=== PATIENT | female | born 1945 | race Caucasian/White ===

== ENCOUNTER 2018-11-30 10:48 | Day surgery (SDC) | payer MEDICARE, OTHER ==
[~2018-11-30 10:48] MED LIST: Lactated Ringers 1,000 ML IV SCH; Lidocaine 1%/Sod Bicarbonate in NS 8.4% 1 ML Syringe IDERM PRN; Sodium Chloride 0.9% 10 ML Syringe FLUSH PRN
[2018-11-30] MEDS ORDERED: Tetracaine HCl/PF 0.5% 4 ML Bottle EYEBOTH ONE (10:50)
[2018-11-30] MEDS: Dexamethasone/Tobramycin 0.1-0.3% Ophth Susp 5 ML Bottle EYEBOTH SCH ×4 (10:58→11:25)
--- NOTE | 2018-11-30 11:07 | PCM.PREANE ---
Preanesthetic Assessment - Procedure Proposed Procedure: dilute- probe-irrigation of nalsal lacrimal system bilateral eyes - Anesthesia/Transfusion/Family Hx Anesthesia History: Prior Anesthesia Without Reaction Family History of Anesthesia Reaction: No Transfusion History: No Prior Transfusion(s) - Review of Systems General: No Symptoms Pulmonary: No Symptoms Cardiovascular: No Symptoms Gastrointestinal: No Symptoms Neurological: No Symptoms Other: Reports: Thyroid Problems - Physical Assessment NPO Status Date: 11/29/18 NPO Status Time: 21:00 (sip of water with am pill) Pulse: 85 O2 Sat by Pulse Oximetry: 95 Respiratory Rate: 16 Blood Pressure: 134/78 Temperature: 97.8 F Height: 5 ft 3 in Weight: 78.018 kg ASA Class: 2 Mental Status: Alert & Oriented x3 Airway Class: Mallampati = 1 Dentition: Reports: Normal Dentition Thyro-Mental Finger Breadths: 3 Mouth Opening Finger Breadths: 3 ROM/Head Extension: Full Lungs: Clear to Auscultation, Normal Respiratory Effort Cardiovascular: Regular Rate, Regular Rhythm - Allergies Allergies/Adverse Reactions: Allergies Allergy/AdvReac Type Severity Reaction Status Date / Time No Known Allergies Allergy Verified 11/29/18 14:31 - Acknowledgements Anesthesia Type Planned: MAC Pt an Appropriate Candidate for the Planned Anesthesia: Yes Alternatives and Risks of Anesthesia Discussed w Pt/Guardian: Yes Pt/Guardian Understands and Agrees with Anesthesia Plan: Yes PreAnesthesia Questionnaire Other HEENT History: wears glasses Cardiovascular History: Reports: High Cholesterol Gastrointestinal History: Reports: Diverticulosis, Hemorrhoids Other Gastrointestinal History: colon polyps, appendix mass, L inguinal hernia repair Genitourinary History: Reports: Renal Calculus, UTI, Recurrent Other Genitourinary History: hematuria Other OB/BYN History: fibrocystic breast disease Other Musculoskeletal History: DJD, bone spur to R 2nd toe, fracture to R and L leg Endocrine/Metabolic History: Reports: Hypothyroidism, Obesity/BMI 30+ Other Hematologic History: rheumatic fever - Past Surgical History GI Surgical History: Reports: Appendectomy, Colonoscopy, Hernia, Inguinal Other Female Surgeries/Procedures: cystoscopy Dermatological Surgical History: Reports: Other (See Below) (cuts on feet thigh sewed up) - SUBSTANCE USE Smoking Status *Q: Never Smoker Tobacco Use Within Last Twelve Months: No Second Hand Smoke Exposure: Yes Recreational Drug Use History: No - HOME MEDS Home Medications: Home Meds Calcium Polycarbophil [Fiber Tabs] 2 tab PO DAILY 01/23/14 [History] Fish Oil/DHA/EPA [Fish Oil 1,200 MG] 1 each PO BID 01/23/14 [History] Levothyroxine 75 mcg PO SUTUTHSA 01/23/14 [History] Levothyroxine [Synthroid] 50 mcg PO MOWEFR 01/23/14 [History] Rosuvastatin Calcium [Crestor] 10 mg PO DAILY 01/23/14 [History] Calcium Carb/Mag Oxide/Cu/Zinc [Melfmpq-Xczrbcsvb-Xhni Tab] 1 tab PO BID [History] Acetaminophen [Tylenol] 650 mg PO Q4H PRN #0 tablet 09/21/15 [Rx] Ibuprofen [Motrin] 400 mg PO Q6H PRN #0 tablet 09/21/15 [Rx] oxyCODONE 5 - 10 mg PO Q4H PRN #50 tablet 09/21/15 [Rx] - CURRENT (IN HOUSE) MEDS Current Meds: Current Medications Lactated Ringer's (Ringers, Lactated) 1,000 mls @ 125 mls/hr IV ASDIRECTED PARI Stop: 11/30/18 23:00 Lidocaine/Sodium Bicarbonate (Buffered Lidocaine 1% In Ns 8.4%) 0.25 ml IDERM ONETIME PRN PRN Reason: Prior to IV Start Stop: 11/30/18 16:00 Sodium Chloride (Saline Flush) 10 ml FLUSH ASDIRECTED PRN PRN Reason: Keep Vein Open Stop: 11/30/18 18:00 Tobramycin/Dexamethasone (Tobradex Ophth Susp) 0 ml EYEBOTH ASDIRECTED PARI Stop: 11/30/18 18:00 Discontinued Medications Tetracaine HCl (Tetracaine 0.5% Steri-Unit Marisa) 0 ml EYEBOTH ASDIRECTED ONE Stop: 11/30/18 10:51
--- NOTE | 2018-11-30 11:48 | PCM48HPAN ---
Post Anesthesia Note - EVALUATION WITHIN 48HRS OF ANESTHETIC Vital Signs in Normal Range: Yes Patient Participated in Evaluation: Yes Respiratory Function Stable: Yes Airway Patent: Yes Cardiovascular Function Stable: Yes Hydration Status Stable: Yes Pain Control Satisfactory: Yes Nausea and Vomiting Control Satisfactory: Yes Mental Status Recovered: Yes Pulse Rate: 87 SaO2: 95 Resp Rate: 16 Temperature: 36.6 C Blood Pressure: 115/73 Pulse Rate: 87
[2018-11-30 12:59] VITALS: BP 121/59
== END 2018-11-30 12:45 | disposition home or self-care (01) ==
LOC: JD.SDS 10:48
PROVIDERS: ATTEND Ophthalmology
DX: H04.563 Stenosis of bilateral lacrimal punctum (principal); H04.202 Unspecified epiphora, left side; H25.813 Combined forms of age-related cataract, bilateral; H02.834 Dermatochalasis of left upper eyelid; H02.831 Dermatochalasis of right upper eyelid; E78.00 Pure hypercholesterolemia, unspecified; Z79.890 Hormone replacement therapy; E66.9 Obesity, unspecified; Z79.899 Other long term (current) drug therapy
CPT/HCPCS: 68801; 68815; A9270; J7120

== ENCOUNTER 2018-12-02 09:09 | Day surgery (SDC) | payer MEDICARE, OTHER ==
[~2018-12-02 09:09] MED LIST changes: +Cefuroxime 10 MG/ML SYRINGE EYERT SCH; -Lactated Ringers 1,000 ML IV SCH; +Lidocaine 1% 2 ML ONE; +Lidocaine 1% PF 2 ML SDV INJECT SCH; -Lidocaine 1%/Sod Bicarbonate in NS 8.4% 1 ML Syringe IDERM PRN; +Propofol 200 MG/20 ML SDV ONE; -Sodium Chloride 0.9% 10 ML Syringe FLUSH PRN
[2018-12-02] MEDS: Polymyxin B/Trimethoprim 10 ML Bottle EYERT SCH ×4 (09:32→11:14)
[2018-12-02] MEDS: Brimonidine 0.2% Ophth Soln 5 ML Bottle EYERT SCH ×4 (09:37→11:14)
[2018-12-02] MEDS: Phenylephrine 2.5% Ophth Soln 2 ML Bot EYERT SCH ×5 (09:43→10:58)
[2018-12-02] MEDS: Tropicamide 1% Ophth Soln 15 ML Bottle EYERT SCH ×4 (09:48→10:33)
--- NOTE | 2018-12-02 09:55 | PCM.PREANE ---
Preanesthetic Assessment - Anesthesia/Transfusion/Family Hx Anesthesia History: Prior Anesthesia Without Reaction Family History of Anesthesia Reaction: No Transfusion History: No Prior Transfusion(s) - Review of Systems General: No Symptoms Pulmonary: No Symptoms Cardiovascular: No Symptoms Gastrointestinal: No Symptoms Neurological: No Symptoms Other: Reports: None - Physical Assessment NPO Status Date: 12/01/18 NPO Status Time: 18:15 Pulse: 75 O2 Sat by Pulse Oximetry: 97 Respiratory Rate: 16 Blood Pressure: 136/68 Vital Signs: Last Vital Signs Temp 36.3 C 12/02/18 09:31 Pulse 75 12/02/18 09:31 Resp 16 12/02/18 09:31 BP 136/68 12/02/18 09:31 Pulse Ox 97 12/02/18 09:31 Height: 1.63 m Weight: 78.018 kg ASA Class: 2 Mental Status: Alert & Oriented x3 Airway Class: Mallampati = 2 Dentition: Reports: Normal Dentition Thyro-Mental Finger Breadths: 3 Mouth Opening Finger Breadths: 3 ROM/Head Extension: Full Lungs: Clear to Auscultation, Normal Respiratory Effort Cardiovascular: Regular Rate, Regular Rhythm - Allergies Allergies/Adverse Reactions: Allergies Allergy/AdvReac Type Severity Reaction Status Date / Time No Known Allergies Allergy Verified 12/01/18 11:11 - Acknowledgements Anesthesia Type Planned: MAC Pt an Appropriate Candidate for the Planned Anesthesia: Yes Alternatives and Risks of Anesthesia Discussed w Pt/Guardian: Yes Pt/Guardian Understands and Agrees with Anesthesia Plan: Yes PreAnesthesia Questionnaire Other HEENT History: wears glasses Cardiovascular History: Reports: High Cholesterol Respiratory History: Reports: None Gastrointestinal History: Reports: Diverticulosis, Hemorrhoids Other Gastrointestinal History: colon polyps, appendix mass, L inguinal hernia repair Genitourinary History: Reports: Renal Calculus, UTI, Recurrent Other Genitourinary History: hematuria Other OB/BYN History: fibrocystic breast disease Musculoskeletal History: Reports: Arthritis Other Musculoskeletal History: DJD, bone spur to R 2nd toe, fracture to R and L leg Neurological History: Reports: None Psychiatric History: Reports: None Endocrine/Metabolic History: Reports: Hypothyroidism, Obesity/BMI 30+ Other Hematologic History: rheumatic fever - Past Surgical History GI Surgical History: Reports: Appendectomy, Colonoscopy, Hernia, Inguinal Other Female Surgeries/Procedures: cystoscopy Dermatological Surgical History: Reports: Other (See Below) (cuts on feet thigh sewed up) - SUBSTANCE USE Smoking Status *Q: Never Smoker - HOME MEDS Home Medications: Home Meds Levothyroxine [Synthroid] 50 mcg PO DAILY 12/01/18 [History] Rosuvastatin [Crestor] 10 mg PO DAILY 12/01/18 [History] - CURRENT (IN HOUSE) MEDS Current Meds: Current Medications Brimonidine Tartrate (Alphagan 0.2% Ophth Soln) 0 ml EYERT TID PARI Stop: 12/02/18 18:00 Last Admin: 12/02/18 09:37 Dose: 1 drop Cefuroxime Sodium (Zinacef) 0 mg EYERT ASDIRECTED PARI Stop: 12/02/18 18:00 Lidocaine HCl (Xylocaine-Mpf 1%) 0 ml INJECT ASDIRECTED PARI Stop: 12/02/18 18:00 Phenylephrine HCl (Timbo-Synephrine 2.5% Ophth Soln) 0 ml EYERT ASDIRECTED PARI Stop: 12/02/18 18:00 Last Admin: 12/02/18 09:43 Dose: 1 drop Pilocarpine HCl (Pilocar 4% Ophth Soln) 0 ml EYERT ASDIRECTED PARI Stop: 12/02/18 18:00 Polymyxin/Trimethoprim Sulfate (Polytrim Ophth Soln) 0 ml EYERT ASDIRECTED PARI Stop: 12/02/18 18:00 Last Admin: 12/02/18 09:32 Dose: 1 drop Tetracaine HCl (Tetracaine 0.5% Steri-Unit Marisa) 0 ml EYERT ASDIRECTED PARI Stop: 12/02/18 18:00 Tropicamide (Mydriacyl 1% Ophth Soln) 0 ml EYERT ASDIRECTED PARI Stop: 12/02/18 18:00 Discontinued Medications Lidocaine HCl (Xylocaine-Mpf 1%) Confirm Administered Dose 2 mls @ as directed .ROUTE .STK-MED ONE Stop: 11/30/18 10:37 Lidocaine HCl (Xylocaine-Mpf 1%) Confirm Administered Dose 2 mls @ as directed .ROUTE .STK-MED ONE Stop: 11/30/18 10:37 Propofol (Diprivan 20 Ml) Confirm Administered Dose 200 mg .ROUTE .STK-MED ONE Stop: 11/30/18 10:37
[2018-12-02] MEDS: Pilocarpine 4% Ophth Soln 15 ML Bot EYERT SCH ×2 (10:14→11:14)
[2018-12-02] MEDS: Tetracaine HCl/PF 0.5% 4 ML Bottle EYERT SCH ×2 (10:40→11:02)
--- NOTE | 2018-12-02 11:16 | PCM48HPAN ---
Post Anesthesia Note - EVALUATION WITHIN 48HRS OF ANESTHETIC Vital Signs in Normal Range: Yes Patient Participated in Evaluation: Yes Respiratory Function Stable: Yes Airway Patent: Yes Cardiovascular Function Stable: Yes Hydration Status Stable: Yes Pain Control Satisfactory: Yes Nausea and Vomiting Control Satisfactory: Yes Mental Status Recovered: Yes Pulse Rate: 80 SaO2: 97 Resp Rate: 16 Blood Pressure: 145/72
[2018-12-02 11:35] VITALS: BP 133/59
== END 2018-12-02 11:28 | disposition home or self-care (01) ==
LOC: JD.SDS 09:09
PROVIDERS: ATTEND Ophthalmology
DX: H25.813 Combined forms of age-related cataract, bilateral (principal); E66.9 Obesity, unspecified; H04.213 Epiphora due to excess lacrimation, bilateral lacrimal glands; H02.831 Dermatochalasis of right upper eyelid; H04.523 Eversion of bilateral lacrimal punctum; H02.834 Dermatochalasis of left upper eyelid; E03.9 Hypothyroidism, unspecified; E78.00 Pure hypercholesterolemia, unspecified; Z79.890 Hormone replacement therapy
CPT/HCPCS: 66984; A9270; C1780; J0697; J2001; J2704

== ENCOUNTER 2018-12-30 06:53 | Day surgery (SDC) | payer MEDICARE, OTHER ==
[~2018-12-30 06:53] MED LIST changes: +Cefuroxime 10 MG/ML SYRINGE EYELF SCH; -Cefuroxime 10 MG/ML SYRINGE EYERT SCH; -Lidocaine 1% 2 ML ONE; +Pilocarpine 4% Ophth Soln 15 ML Bot EYELF SCH; -Propofol 200 MG/20 ML SDV ONE
[2018-12-30] MEDS: Polymyxin B/Trimethoprim 10 ML Bottle EYELF SCH ×3 (07:12→08:46)
[2018-12-30] MEDS: Brimonidine 0.2% Ophth Soln 5 ML Bottle EYELF SCH ×3 (07:15→08:46)
[2018-12-30] MEDS: Phenylephrine 2.5% Ophth Soln 2 ML Bot EYELF SCH ×5 (07:18→08:32)
--- NOTE | 2018-12-30 07:18 | PCM.PREANE ---
Preanesthetic Assessment - Anesthesia/Transfusion/Family Hx Anesthesia History: Prior Anesthesia Without Reaction Family History of Anesthesia Reaction: No Transfusion History: No Prior Transfusion(s) - Review of Systems General: Other (increased cholesterol) Pulmonary: No Symptoms Cardiovascular: No Symptoms Other: Reports: Thyroid Problems - Physical Assessment NPO Status Date: 12/29/18 NPO Status Time: 18:30 Pulse: 76 O2 Sat by Pulse Oximetry: 96 Respiratory Rate: 16 Blood Pressure: 150/97 Weight: 78.018 kg ASA Class: 2 Mental Status: Alert & Oriented x3 Airway Class: Mallampati = 2 Dentition: Reports: Normal Dentition Thyro-Mental Finger Breadths: 3 Mouth Opening Finger Breadths: 3 ROM/Head Extension: Full Lungs: Clear to Auscultation, Normal Respiratory Effort Cardiovascular: Regular Rate, Regular Rhythm - Allergies Allergies/Adverse Reactions: Allergies Allergy/AdvReac Type Severity Reaction Status Date / Time No Known Allergies Allergy Verified 12/29/18 13:35 - Blood Blood Available: No Product(s) Available: None - Anesthesia Plan Pre-Op Medication Ordered: None - Acknowledgements Anesthesia Type Planned: MAC Pt an Appropriate Candidate for the Planned Anesthesia: Yes Alternatives and Risks of Anesthesia Discussed w Pt/Guardian: Yes Pt/Guardian Understands and Agrees with Anesthesia Plan: Yes PreAnesthesia Questionnaire Other HEENT History: wears glasses Cardiovascular History: Reports: High Cholesterol Respiratory History: Reports: None Gastrointestinal History: Reports: Diverticulosis, Hemorrhoids Other Gastrointestinal History: colon polyps, appendix mass, L inguinal hernia repair Genitourinary History: Reports: Renal Calculus, UTI, Recurrent Other Genitourinary History: hematuria Other OB/BYN History: fibrocystic breast disease Musculoskeletal History: Reports: Arthritis Other Musculoskeletal History: DJD, bone spur to R 2nd toe, fracture to R and L leg Neurological History: Reports: None Psychiatric History: Reports: None Endocrine/Metabolic History: Reports: Hypothyroidism, Obesity/BMI 30+ Other Hematologic History: rheumatic fever - Past Surgical History GI Surgical History: Reports: Appendectomy, Colonoscopy, Hernia, Inguinal Other Female Surgeries/Procedures: cystoscopy Dermatological Surgical History: Reports: Other (See Below) (cuts on feet thigh sewed up) - HOME MEDS Home Medications: Home Meds Levothyroxine [Synthroid] 50 mcg PO DAILY 12/01/18 [History] Rosuvastatin [Crestor] 10 mg PO DAILY 12/01/18 [History] - CURRENT (IN HOUSE) MEDS Current Meds: Current Medications Brimonidine Tartrate (Alphagan 0.2% Ophth Soln) 0 ml EYELF ASDIRECTED PARI Stop: 12/30/18 18:00 Cefuroxime Sodium (Zinacef) 0 mg EYELF ASDIRECTED PARI Stop: 12/30/18 18:00 Lidocaine HCl (Xylocaine-Mpf 1%) 0 ml INJECT ASDIRECTED PARI Stop: 12/30/18 18:00 Phenylephrine HCl (Timbo-Synephrine 2.5% Ophth Soln) 0 ml EYELF ASDIRECTED PARI Stop: 12/30/18 18:00 Pilocarpine HCl (Pilocar 4% Ophth Soln) 0 ml EYELF ASDIRECTED PARI Stop: 12/30/18 18:00 Polymyxin/Trimethoprim Sulfate (Polytrim Ophth Soln) 0 ml EYELF ASDIRECTED PARI Stop: 12/30/18 18:00 Last Admin: 12/30/18 07:12 Dose: 1 drop Tetracaine HCl (Tetracaine 0.5% Steri-Unit Marisa) 0 ml EYELF ASDIRECTED PARI Stop: 12/30/18 18:00 Tropicamide (Mydriacyl 1% Ophth Soln) 0 ml EYELF ASDIRECTED PARI Stop: 12/30/18 18:00
[2018-12-30] MEDS: Tropicamide 1% Ophth Soln 15 ML Bottle EYELF SCH ×4 (07:21→08:00)
[2018-12-30] MEDS: Tetracaine HCl/PF 0.5% 4 ML Bottle EYELF SCH ×4 (08:11→08:42)
--- NOTE | 2018-12-30 08:52 | PCM48HPAN ---
Post Anesthesia Note - EVALUATION WITHIN 48HRS OF ANESTHETIC Vital Signs in Normal Range: Yes Patient Participated in Evaluation: Yes Respiratory Function Stable: Yes Airway Patent: Yes Cardiovascular Function Stable: Yes Hydration Status Stable: Yes Pain Control Satisfactory: Yes Nausea and Vomiting Control Satisfactory: Yes Mental Status Recovered: Yes Pulse Rate: 76 Resp Rate: 16 Blood Pressure: 150/97
[2018-12-30 09:02] VITALS: BP 132/59
== END 2018-12-30 08:57 | disposition home or self-care (01) ==
LOC: JD.SDS 06:53
PROVIDERS: ATTEND Ophthalmology
DX: H25.812 Combined forms of age-related cataract, left eye (principal); H02.834 Dermatochalasis of left upper eyelid; H02.831 Dermatochalasis of right upper eyelid; H16.223 Keratoconjunctivitis sicca, not specified as Sjogren's, bilateral; H16.103 Unspecified superficial keratitis, bilateral; H52.31 Anisometropia; E78.00 Pure hypercholesterolemia, unspecified; E03.9 Hypothyroidism, unspecified; E66.9 Obesity, unspecified; Z68.29 Body mass index [BMI] 29.0-29.9, adult; M19.90 Unspecified osteoarthritis, unspecified site; Z98.41 Cataract extraction status, right eye; Z96.1 Presence of intraocular lens; Z79.899 Other long term (current) drug therapy
CPT/HCPCS: A9270-GY; C1780; J0697; J2001

== ENCOUNTER 2025-03-21 05:26 | Emergency (ER) | payer MEDICARE, OTHER ==
[2025-03-21] MEDS ORDERED: Sodium Chloride 0.9% 10 ML Syringe FLUSH PRN (06:06)
[2025-03-21] MEDS: HYDROmorphone 0.5 MG/0.5 ML Syringe IVPUSH ONE (06:14)
[2025-03-21 06:16] LABS: BASOPHILS PERCENT AUTO 0.4 % (0.0-1.0); EOSINOPHILS ABSOLUTE AUTO 0.1 K/mm3 (0.0-0.4); EOSINOPHILS PERCENT AUTO 1.3 % (0.0-6.0); HEMATOCRIT 43.6 % (37.0-47.0); IMMATURE GRAN ABSOLUTE AUTO 0.02 K/mm3 (0.00-0.05); IMMATURE GRAN PERCENT AUTO 0.2 % (0.0-0.4); LYMPHOCYTES ABSOLUTE AUTO 2.7 K/mm3 (1.0-4.8); LYMPHOCYTES PERCENT AUTO 29.2 % (24.0-44.0); MEAN CORPUSCULAR HEMOGLOBIN 29.7 pg (28.0-32.0); MEAN CORPUSCULAR HGB CONC 32.1 g/dl (32.0-36.0); MEAN CORPUSCULAR VOLUME 92.4 fl (83.0-99.0); MEAN PLATELET VOLUME 9.3 fl (9.4-12.3); MONOCYTES ABSOLUTE AUTO 1.2 K/mm3 (0.0-0.8); MONOCYTES PERCENT AUTO 12.9 % (0.0-8.0); NEUTROPHILS ABSOLUTE AUTO 5.2 K/mm3 (1.8-7.7); PLATELET COUNT,PLT 219 K/mm3 (150-400); RED BLOOD CELL COUNT 4.72 M/mm3 (4.10-5.30); WHITE BLOOD CELL COUNT,WBC 9.37 K/mm3 (3.9-11.3)
[2025-03-21 06:25] LABS: A/G RATIO 0.9 (1-2); ALBUMIN 3.5 g/dl (3.4-5.0); ANION GAP 12.6 (5-15); BILIRUBIN TOTAL 1.3 mg/dL (0.2-1.0); CALCIUM 9.4 mg/dL (8.5-10.1); EST CRCL DRUG DOSING (CG) 40.38 mL/min; POTASSIUM,K 3.6 mEq/L (3.5-5.1); PROTEIN TOTAL,TP 7.3 g/dl (6.4-8.2)
[2025-03-21 07:51] LABS: APPEARANCE,URINE CLEAR (Clear); BILIRUBIN,URINE NEGATIVE (Negative); COLOR,URINE YELLOW (Yellow); GLUCOSE,URINE NEGATIVE (Negative); KETONES,URINE 1+ (Negative); LEUKOCYTE ESTERASE,URINE NEGATIVE (Negative); NITRITE,URINE NEGATIVE (Negative); OCCULT BLOOD,URINE NEGATIVE (Negative); PROTEIN,URINE TRACE (Negative)
[2025-03-21 08:00] LABS: BACTERIA,URINE FEW /hpf (FEW); MUCUS,URINE RARE /hpf (FEW); RBC,URINE 0-5 /hpf (0-5); SQUAMOUS EPITHELIAL CELLS,UR 0-5 /hpf (0-5); WBC,URINE 0-5 /hpf (0-5)
[2025-03-21 09:04] VITALS: BP 135/79; PULSE 82
== END 2025-03-21 08:36 | disposition home or self-care (01) ==
LOC: JD.ED 05:26
DX: R10.9 Unspecified abdominal pain (principal); E78.00 Pure hypercholesterolemia, unspecified; E66.9 Obesity, unspecified; Z68.28 Body mass index [BMI] 28.0-28.9, adult; E03.9 Hypothyroidism, unspecified; Z79.899 Other long term (current) drug therapy; Z79.890 Hormone replacement therapy
CPT/HCPCS: 36415; 74176; 74176-26; 80053; 81001; 83690; 85025; 96374; 99284; 99284-25